=== PATIENT | female | born 1960 | race Caucasian/White ===

== ENCOUNTER → 2022-02-13 13:26 | Outpatient (CLI) | payer MEDICAID, SELFPAY ==
--- NOTE | 2022-02-13 13:36 | CT_ITS ---
FINAL REPORT CLINICAL HISTORY: . 1ppd [id number] smoker FINDINGS: CT CHEST SCREENING CTDI vol (mGy): 2.90 DLP (mGy-cm): 103.42 Axial images were obtained from the lung apex to the mid abdomen by computed tomography. Low-dose protocol was utilized. CHEST: There is no axillary adenopathy. There is no hilar or mediastinal adenopathy. The heart is proper size. There is no pericardial or pleural effusion. Limited images of the upper abdomen are unremarkable. There is mild scarring. There are numerous small, 5 mm or less, bilateral pulmonary nodules. One of the larger nodules, located in the lateral right upper lobe, measures 5 mm, best seen on image 24. IMPRESSION: Pulmonary poles as above. Lung RADS category 2. Recommend 12 month follow-up low-dose chest CT. Reviewed, Interpreted and Dictated by Sadi Claudio III, MD Transcribed by Yesica Jain Authenticated by Sadi Claudio III, MD on 02/13/2022 02:32:43 PM [facility]
== END ==
PROVIDERS: PCP Family Medicine; Visit Provider Family Medicine
DX: Z87.891 Personal history of nicotine dependence (principal); Z12.2 Encounter for screening for malignant neoplasm of respiratory organs
CPT/HCPCS: 71271

== ENCOUNTER 2023-07-24 13:51 | Inpatient (IN) | payer SELFPAY ==
[2023-07-24] VITALS (10 sets, daily range): BP systolic 101–153; BP diastolic 64–127; PULSE 65–94; RESP 18; TEMP 36.7–36.9; O2SAT 91–98; BMI 27.4; BMI 25.8; BMI 22.1
--- NOTE | 2023-07-24 14:07 | CT_ITS ---
PROCEDURE INFORMATION: Exam: CT Abdomen And Pelvis With Contrast Exam date and time: 07/24/2023 3:17 PM Age: 62 years old Clinical indication: Nausea; Additional info: N/v/d TECHNIQUE: Imaging protocol: Computed tomography of the abdomen and pelvis with contrast. Radiation optimization: All CT scans at this facility use at least one of these dose optimization techniques: automated exposure control; mA and/or kV adjustment per patient size (includes targeted exams where dose is matched to clinical indication); or iterative reconstruction. Contrast material: ISOVUE 370; Contrast volume: 75 ml; Contrast route: IV; REPORTING DATA: Count of CT and Cardiac NM exams in prior 12 months: This patient has received 0 known CTs and 0 known cardiac nuclear medicine studies in the 12 months prior to the current study. COMPARISON: CT LUNG SCREENING 02/13/2022 1:49 PM FINDINGS: Liver: Normal. No mass. Gallbladder and bile ducts: Normal. No calcified stones. No ductal dilation. Pancreas: Normal. No ductal dilation. Spleen: Multiple punctate calcified granulomata within the spleen, consistent with prior granulomatous disease. Adrenal glands: Normal. No mass. Kidneys and ureters: Normal. No hydronephrosis. Stomach and bowel: Colonic diverticulosis with subtle inflammatory fat stranding in the descending colon, suspicious for uncomplicated acute diverticulitis. No abscess. Appendix: No evidence of appendicitis. Intraperitoneal space: Unremarkable. No free air. No significant fluid collection. Vasculature: Aortoiliac atherosclerosis. No aneurysm. Lymph nodes: Unremarkable. No enlarged lymph nodes. Urinary bladder: Unremarkable as visualized. Reproductive: Unremarkable as visualized. Bones/joints: Unremarkable. No acute fracture. Soft tissues: Unremarkable. IMPRESSION: Colonic diverticulosis with subtle inflammatory fat stranding in the descending colon, suspicious for uncomplicated acute diverticulitis. No abscess.
--- NOTE | 2023-07-24 14:16 | PC.NURSE ---
pt given warm blanket, at BS
[2023-07-24 14:32] LABS: Chloride 96 mmol/L (98-107); Potassium 3.3 mmoL/L (3.5-5.1); Sodium 133 mmol/L (136-145)
[2023-07-24 14:34] LABS: Blood Urea Nitrogen 9 mg/dl (7-17); Creatinine Clearance Estimated 66 mL/min (50-200); Estimated Glomerular Filt Rate 85 ml/min (>60); GFR (African American) 102 ML/MIN (>60)
[2023-07-24 14:35] LABS: Alanine Aminotransferase 24 U/L (12-78); Albumin Level 4.8 g/dl (3.5-5.0); Albumin/Globulin Ratio 1.5 (1.1-1.8); Alkaline Phosphatase 97 U/L (38-126); Anion Gap 11.3 mEq/L (5-15); Aspartate Amino Transferase 38 U/L (14-36); Bilirubin,Total 0.5 mg/dl (0.2-1.3); Calcium 9.4 mg/dl (8.4-10.2); Carbon Dioxide 29 mmol/L (22.0-30.0); Globulin 3.2 g/dL (1.3-3.2); Glucose 161 mg/dl (74-100); Lipase 45 U/L (23-300)
[2023-07-24 14:36] LABS: Lactic Acid 1.9 mmol/L (0.7-2.1)
[2023-07-24 14:44] LABS: Basophils % 0.3 % (0.1-2.0); Eosinophils % 0.2 % (0.1-12.0); Hematocrit 45.6 % (37.0-47.0); Hemoglobin 16.1 g/dL (12.2-16.2); Lymphocytes # 0.9 K/mm3 (0.7-4.5); Lymphocytes % 11.3 % (10-50); Mean Corpuscular HGB Conc 35.3 g/dL (31.8-35.4); Mean Corpuscular Hemoglobin 33.2 pg (27.0-31.2); Mean Corpuscular Volume 94.1 fl (81-99); Mean Platelet Volume 7.8 fl (7.4-10.4); Monocytes # 0.3 K/mm3 (0.1-1.0); Monocytes % 3.8 % (1.7-9.3); Neutrophils # 6.3 K/mm3 (1.8-7.8); Neutrophils % 84.3 % (37.0-80.0); Platelet Count 349 K/mm3 (142-424); Red Blood Count 4.85 M/mm3 (4.20-5.40); Red Cell Distribution Width 13.7 % (11.5-17.5); White Blood Count 7.5 K/mm3 (4.8-10.8)
--- NOTE | 2023-07-24 15:14 | PC.NURSE ---
Pt gone to RAD via wheelchair
[2023-07-24 15:19] LABS: Appearance,Urine CLEAR (Clear); Bilirubin,Urine Negative (Negative); Blood, Urine Negative (Negative); Color,Urine YELLOW (Yellow); Glucose,Urine (UA) Negative (Negative); Ketones,Urine 1+ (Negative); Leukocyte Esterase,Urine Negative (Negative); Microscopic, Urine URINE MICROSCOPIC (MICROSCOPIC); Nitrate,Urine Negative (Negative); PH,Urine 8.5 (5.0-8.5); Protein,Urine 2+ (Negative); Specific Gravity, Urine 1.015 (1.005-1.030); Urobilinogen,Urine 0.2 EU/dl (0.2)
--- NOTE | 2023-07-24 15:23 | PC.NURSE ---
Pt returned from RAD
[2023-07-24 15:44] LABS: WBC,Urine Occasional #/hpf (0-3)
[2023-07-24 15:45] LABS: Amorphous Sediment,Urine Trace /lpf; Bacteria,Urine Trace /lpf; Coarse Granular Casts,Urine Occasional #/lpf (0); RBC,Urine Occasional #/hpf (0-3)
--- NOTE | 2023-07-24 16:05 | PC.NURSE ---
Pt given sprite for PO challenge
--- NOTE | 2023-07-24 16:35 | PC.NURSE ---
Pt able to drink sprite without problems. notified.
--- NOTE | 2023-07-24 16:55 | HMH.EDGENADL ---
Discharge Plan Disposition Patient Disposition: Home, Self-Care Condition: Good Prescriptions Prescriptions: No Action multivitamin [One Daily Multivitamin] Tablet 1 tab PO DAILY aspirin 81 mg tablet,delayed release (DR/EC) 81 mg PO DAILY diphenhydramine HCl [Benadryl] 25 mg capsule 25 mg PO HS cetirizine 10 mg tablet 10 mg PO DAILY escitalopram oxalate 5 mg tablet 5 mg PO DAILY Qty: 90 3RF lisinopril 5 mg tablet 5 mg PO DAILY Qty: 90 3RF Referrals Follow up/Referrals: Dreek Kaye MD [Primary Care Provider] - See instructions Clinical Impressions Clinical Impression: Diverticulitis, Nausea, vomiting, and diarrhea Instructions Patient Instructions: DI for Diverticulitis Discharge ED Provider: Heladio Riley I General Adult HPI <Heladio Rilye MD - Last Filed: 07/24/23 17:24> General Chief complaint: Nausea/Vomiting/Diarrhea Stated complaint: THROWING UP ALL NIGHT Time Seen by Provider: 07/24/23 13:58 Mode of Arrival: Family Vehicle Source of Information: Patient and Spouse Limitations: No Limitations Description of Symptoms (Recalled from ER Triage Doc. by RN): Pt c/o nausea, vomiting, diarrhea, and abd burning since approx 3am. States she has a hx of diverticulitis. History of Present Illness HPI narrative: Patient is a 62-year-old female, history of cervical cancer, depression, hypertension and diverticulosis presenting to the emergency department with several hour history of nausea, vomiting, diarrhea. History was conducted with the patient as well as the of the patient at bedside. She reports that she woke up this morning at approximately 3 AM with nausea, multiple episodes of vomiting and multiple episodes of watery nonbloody diarrhea. She denies any focal abdominal pain. Also denies fever, cough, congestion, runny nose. Denies chest pain, shortness of breath, difficulty breathing. Patient has attempted to drink water throughout the day but has had recurrent episodes of vomiting. Reports that this is similar to a prior episode of diverticulitis. Related Data Home Medications Medication Instructions Recorded Confirmed multivitamin (One Daily 1 tab PO DAILY 03/06/21 04/08/23 Multivitamin tablet) cetirizine 10 mg tablet 10 mg PO DAILY allergies 02/23/23 04/08/23 diphenhydramine HCl 25 mg capsule 25 mg PO HS allergies 02/23/23 04/08/23 (Benadryl) aspirin 81 mg tablet,delayed 81 mg PO DAILY 03/23/23 04/08/23 release Previous Rx's Medication Instructions Recorded escitalopram oxalate 5 mg tablet 5 mg PO DAILY #90 tabs 02/23/23 lisinopril 5 mg tablet 5 mg PO DAILY #90 tabs 02/23/23 Allergies Allergy/AdvReac Type Severity Reaction Status Date / Time No Known Allergies Allergy Verified 04/08/23 13:35 PFS <Heladio Riley MD - Last Filed: 07/24/23 17:24> [facility] Disclaimer: The information contained in this section may have been updated after the patient was seen, as this information can be updated by other users. Medical History Allergies Anxiety Cervical cancer Depression Hypertension Surgical History History of History of hysterectomy Family History Brother Cancer Father Cancer Grandfather Cancer Mother No problems noted. Grandmother Hypertension Other Coronary artery disease Social History Smoking Status: Never smoker alcohol intake: current substance use type: marijuana current occupational status: retired Travel in the last 8 weeks: None household members: spouse housing: house <Heladio Riley MD - Last Filed: 07/24/23 17:24> ROS Obtained: Yes All systems reviewed & no additional complaints except as documented Physical Exam <Heladio Riley MD
--- NOTE | 2023-07-24 17:12 | PC.NURSE ---
Rounded on pt. Pt resting with eyes closed. Visitor remains at BS.
--- NOTE | 2023-07-24 18:31 | PC.NURSE ---
Dr. Mackay speaking with hospitalist
--- NOTE | 2023-07-24 18:55 | PC.NURSE ---
attempted to call report to med-surg, night warehouse manager nurse Jaycee will call report when she arrives
--- NOTE | 2023-07-24 19:30 | PC.NURSE ---
Report given to TADEO Champion
--- NOTE | 2023-07-24 19:58 | PC.NURSE ---
pt arrived to the floor @19:48
--- NOTE | 2023-07-24 20:15 | EXP.HP ---
History of Present Illness *Admission Date: 07/24/23 *Reason for visit:: N/V/D *History of present illness: Katrina is a 62-year-old female, history of cervical cancer, depression, hypertension and diverticulosis presenting to the emergency department with several hour history of nausea, vomiting, diarrhea. History was conducted with the patient as well as the of the patient at bedside. She reports that she woke up this morning at approximately 3 AM with nausea, multiple episodes of vomiting and multiple episodes of watery nonbloody diarrhea. She denies any focal abdominal pain. Also denies fever, cough, congestion, runny nose. Denies chest pain, shortness of breath, difficulty breathing. Patient has attempted to drink water throughout the day but has had recurrent episodes of vomiting. Reports that this is similar to a prior episode of diverticulitis. Admitted for further treatment. [facility] Disclaimer: The information contained in this section may have been updated after the patient was seen, as this information can be updated by other users. Medical History Allergies Anxiety Cervical cancer Depression Hypertension Surgical History History of History of hysterectomy Family History Brother Cancer Father Cancer Grandfather Cancer Mother No problems noted. Grandmother Hypertension Other Coronary artery disease Social History (Updated 07/24/23 @ 20:31 by Jaycee Sheridan RN) Smoking Status: Current every day smoker alcohol intake: current substance use type: marijuana current occupational status: employed and retired Travel in the last 8 weeks: None household members: spouse housing: house Review of Systems Review of Systems Review of systems:: pertinent systems reviewed and negative unless documented below Meds Home Medications and Allergies Home Medications Medication Instructions Recorded Confirmed Type multivitamin (One Daily 1 tab PO DAILY 03/06/21 07/25/23 History Multivitamin tablet) cetirizine 10 mg tablet 10 mg PO DAILY Allergy Symptoms 02/23/23 07/25/23 History diphenhydramine HCl 25 mg capsule 25 mg PO HS Sleep 02/23/23 07/25/23 History (Benadryl) aspirin 81 mg tablet,delayed 81 mg PO DAILY Heart Health 03/23/23 07/25/23 History release escitalopram oxalate 5 mg tablet 5 mg PO DAILY Mood 07/25/23 07/25/23 History lisinopril 5 mg tablet 5 mg PO DAILY High Blood Pressure 07/25/23 07/25/23 History New Prescriptions to Start Prescriptions: Allergies Allergy/AdvReac Type Severity Reaction Status Date / Time No Known Allergies Allergy Verified 04/08/23 13:35 Exam Data for Last 24 hours Vital signs and Labs for Last 24 Hours: Temp Pulse Resp BP Pulse Ox O2 Del Method 98.4 F 80 18 145/76 H 94 L Room Air 07/24/23 19:32 07/24/23 19:32 07/24/23 19:32 07/24/23 19:32 07/24/23 18:32 07/24/23 18:32 Laboratory Results - last 24 hr 07/24/23 14:06: WBC 7.5, RBC 4.85, Hgb 16.1, Hct 45.6, MCV 94.1, MCH 33.2 H, MCHC 35.3, RDW 13.7, Plt Count 349, MPV 7.8, Neut % (Auto) 84.3 H, Lymph % (Auto) 11.3, [place] % (Auto) 3.8, Eos % (Auto) 0.2, Baso % (Auto) 0.3, Neut # (Auto) 6.3, Lymph # (Auto) 0.9, [place] # (Auto) 0.3, Eos # (Auto) 0.0, Baso # (Auto) 0.0, Sodium 133 L, Potassium 3.3 L, Chloride 96 L, Carbon Dioxide 29, Anion Gap 11.3, BUN 9, Creatinine 0.70, Estimated Creat Clear 66, Estimated GFR 85, Est GFR ( Amer) 102, Glucose 161 H, Lactate 1.9, Calcium 9.4, Total Bilirubin 0.5, AST 38 H, ALT 24, Alkaline Phosphatase 97, Total Protein 8.0, Albumin 4.8, Globulin 3.2, Albumin/Globulin Ratio 1.5, Lipase 45 07/24/23 15:12: Urine Color Yellow, Urine Appearance Clear, Urine pH 8.5, Ur Specific [place] 1.015, Urine Protein 2+, Urine Glucose (UA) Negative, Urine Ketones 1+, Urine Bl
[2023-07-24 20:53] LABS: POC Glucose,Bedside 132 (70-110)
[2023-07-25] VITALS: BP 102/58; PULSE 84; RESP 18; TEMP 37.2; O2SAT 90
--- NOTE | 2023-07-25 03:21 | PC.NURSE ---
Pt is alert and oriented x4, currently on RA, Pt has a history of COPD and sats in the lower 90s, Pt arrived to the unit complaining of nausea and has vomited x2 this shift, pt has received antibiotics and anti nausea meds. Pt seems to be resting well denies pain and offers no complaints at this time.
[2023-07-25 04:00] VITALS: BP 107/59; PULSE 77; RESP 18; TEMP 36.9; O2SAT 84; BMI 22.1
--- NOTE | 2023-07-25 04:03 | PC.NURSE ---
Tech reported O2 of 87% on RA, applied 2L and pt is sating at 94%
[2023-07-25 05:46] LABS: POC Glucose,Bedside 93 (70-110)
[2023-07-25 07:19] LABS: Basophils % 0.7 % (0.1-2.0); Monocytes # 0.6 K/mm3 (0.1-1.0); Neutrophils # 3.2 K/mm3 (1.8-7.8); Red Cell Distribution Width 13.8 % (11.5-17.5)
[2023-07-25 07:21] LABS: Chloride 100 mmol/L (98-107)
[2023-07-25 07:22] LABS: Potassium 3.1 mmoL/L (3.5-5.1); Sodium 133 mmol/L (136-145)
[2023-07-25 07:25] LABS: Anion Gap 7.1 mEq/L (5-15); Blood Urea Nitrogen 9 mg/dl (7-17); Calcium 8.2 mg/dl (8.4-10.2); Carbon Dioxide 29 mmol/L (22.0-30.0); Creatinine Clearance Estimated 57 mL/min (50-200); Estimated Glomerular Filt Rate 72 ml/min (>60); GFR (African American) 88 ML/MIN (>60); Glucose 95 mg/dl (74-100)
[2023-07-25 07:33] LABS: Eosinophils % 0.7 % (0.1-12.0); Lymphocytes # 1.8 K/mm3 (0.7-4.5); Lymphocytes % 31.7 % (10-50); Mean Corpuscular HGB Conc 34.3 g/dL (31.8-35.4); Mean Corpuscular Hemoglobin 32.5 pg (27.0-31.2); Mean Corpuscular Volume 94.6 fl (81-99); Mean Platelet Volume 7.5 fl (7.4-10.4); Monocytes % 10.4 % (1.7-9.3); Neutrophils % 56.5 % (37.0-80.0); Platelet Count 267 K/mm3 (142-424); Red Blood Count 4.33 M/mm3 (4.20-5.40); White Blood Count 5.7 K/mm3 (4.8-10.8)
[2023-07-25 08:00] VITALS: BP 121/71; PULSE 71; RESP 18; TEMP 37.3; O2SAT 96
--- NOTE | 2023-07-25 09:05 | HMH.PHAINT1 ---
Pharmacy Intervention Comments: MEDICATION RECONCILIATION COMPLETED ON PATIENT USING EXTERNAL FILL HISTORY FROM PHARMACY AND LIST FROM PCP OFFICE. -ALEXEY PEREZ, NADIRAD
[2023-07-25 13:28] LABS: POC Glucose,Bedside 96 (70-110)
--- NOTE | 2023-07-25 15:02 | EXP.PN ---
Subjective *Date: 07/25/23 *Time: 15:02 Interval history: Patient was seen and evaluated at the bedside. denies chest pain, shortness of breath, nausea, vomiting, abdominal pain. Patient does not have any complaints at this time. feels better overall Exam Data for Last 24 hours Vital signs and Labs for Last 24 Hours: Temp Pulse Resp BP Pulse Ox O2 Del Method O2 Flow Rate 99.2 F 71 18 121/71 96 Nasal Cannula 2 07/25/23 08:00 07/25/23 08:00 07/25/23 08:00 07/25/23 08:00 07/25/23 08:00 07/25/23 12:31 07/25/23 12:31 Laboratory Results - last 24 hr 07/24/23 15:12: Urine Color Yellow, Urine Appearance Clear, Urine pH 8.5, Ur Specific [place] 1.015, Urine Protein 2+, Urine Glucose (UA) Negative, Urine Ketones 1+, Urine Blood Negative, Urine Nitrate Negative, Urine Bilirubin Negative, Urine Urobilinogen 0.2, Ur Leukocyte Esterase Negative, Urine RBC Occasional, Urine WBC Occasional, Ur Squamous Epith Cells 3-5, Amorphous Sediment Trace, Urine Bacteria Trace, Coarse Granular Casts Occasional 07/24/23 20:44: POC Glucose 132 H 07/25/23 05:26: POC Glucose 93 07/25/23 07:09: WBC 5.7, RBC 4.33, Hgb 14.0 D, Hct 41.0, MCV 94.6, MCH 32.5 H, MCHC 34.3, RDW 13.8, Plt Count 267, MPV 7.5, Neut % (Auto) 56.5, Lymph % (Auto) 31.7, [place] % (Auto) 10.4 H, Eos % (Auto) 0.7, Baso % (Auto) 0.7, Neut # (Auto) 3.2, Lymph # (Auto) 1.8, [place] # (Auto) 0.6, Eos # (Auto) 0.0, Baso # (Auto) 0.0, Sodium 133 L, Potassium 3.1 L, Chloride 100, Carbon Dioxide 29, Anion Gap 7.1, BUN 9, Creatinine 0.80, Estimated Creat Clear 57, Estimated GFR 72, Est GFR ( Amer) 88, Glucose 95 D, Calcium 8.2 L 07/25/23 13:21: POC Glucose 96 I & O for Last 24 hours: Intake & Output 07/22/23 07/23/23 07/24/23 07/25/23 23:59 23:59 23:59 23:59 Intake Total 510 / 510 Output Total 0 / 0 0 / 0 Balance 0 / 60 510 / 510 Weight 62.624 kg 62.624 kg Constitutional Constitutional: no acute distress *Routine HEENT Exam Head: Present normocephalic Eye: Present EOMI and PERRL ENT: Present mucous membranes moist *Routine Neck Exam Neck: Present supple; Absent lymphadenopathy *Routine Respiratory Exam Respiratory: Present CTA bilaterally *Routine Cardiovascular Exam Cardiovascular: Present RRR *Routine Abdominal Exam Abdominal: Present soft and normoactive bowel sounds; Absent tenderness *Routine Extremities Exam Extremities: Absent cyanosis, clubbing or edema *Routine Skin Exam Skin: Present warm; Absent rash *Routine Neurological Exam Neurological: Present alert and oriented X3 Assessment and Plan *Assessment and plan (1) Nausea, vomiting, and diarrhea: Status: Acute Category: Medical Code(s): R11.2 - Nausea with vomiting, unspecified; R19.7 - Diarrhea, unspecified (2) Diverticulitis: Status: Acute Category: Medical Code(s): K57.92 - Diverticulitis of intestine, part unspecified, without perforation or abscess without bleeding (3) Hypertension: Status: Acute Qualifiers: Hypertension type: unspecified Qualified Code(s): I10 - Essential (primary) hypertension Category: Medical Code(s): I10 - Essential (primary) hypertension (4) Pulmonary nodule seen on imaging study: Status: Acute Category: Medical Code(s): R91.1 - Solitary pulmonary nodule (5) Anxiety: Status: Acute Category: Medical Code(s): F41.9 - Anxiety disorder, unspecified Plan 62-year-old female, history of cervical cancer, depression, hypertension and diverticulosis presenting to the emergency department with several hour history of nausea, vomiting, diarrhea. Upon arrival patient underwent for fluid resuscitation, IV antiemetic, and CT of the abdomen. Confirming acute inflammatory changes, consistent with uncomplicated diverticulitis. nausea, vomiting diarrhea - secondary to acute diverticulitis: advance diet as tolerated started on IV levofloxacin and zoxyn. consul
--- NOTE | 2023-07-25 15:13 | EXP.SURG.CON ---
History of Present Illness *Admission Date: 07/24/23 *History of present illness: Katrina is a 62-year-old female, history of cervical cancer, depression, hypertension and diverticulosis presenting to the emergency department with several hour history of nausea, vomiting, diarrhea. History was conducted with the patient as well as the of the patient at bedside. She reports that she woke up this morning at approximately 3 AM with nausea, multiple episodes of vomiting and multiple episodes of watery nonbloody diarrhea. She denies any focal abdominal pain. Also denies fever, cough, congestion, runny nose. Denies chest pain, shortness of breath, difficulty breathing. Patient has attempted to drink water throughout the day but has had recurrent episodes of vomiting. Reports that this is similar to a prior episode of diverticulitis. Admitted for further treatment. 62-year-old female with history of cervical cancer, depression, hypertension, and diverticulosis/diverticulitis in the past. Presents with violent vomiting and some diarrhea. She reports this is similar to previous episode of diverticulitis she has had. Denies all abdominal pain. Her last colonoscopy was in 2019. And normal per patient. A CT scan showed diverticulosis with mild fat stranding that may be consistent with uncomplicated acute diverticulitis. Labs were normal except for hypokalemia with potassium of 3.1. [facility] Disclaimer: The information contained in this section may have been updated after the patient was seen, as this information can be updated by other users. Medical History Allergies Anxiety Cervical cancer Depression Hypertension Surgical History History of History of hysterectomy Family History Brother Cancer Father Cancer Grandfather Cancer Mother No problems noted. Grandmother Hypertension Other Coronary artery disease Social History Smoking Status: Current every day smoker alcohol intake: current substance use type: marijuana current occupational status: employed and retired Travel in the last 8 weeks: None household members: spouse housing: house Review of Systems Review of Systems Review of systems:: pertinent systems reviewed and negative unless documented below *Gastrointestinal Gastrointestinal: Denies abdominal pain, Reports diarrhea and Reports vomiting Meds Home Medications and Allergies Home Medications Medication Instructions Recorded Confirmed Type multivitamin (One Daily 1 tab PO DAILY 03/06/21 07/25/23 History Multivitamin tablet) cetirizine 10 mg tablet 10 mg PO DAILY Allergy Symptoms 02/23/23 07/25/23 History diphenhydramine HCl 25 mg capsule 25 mg PO HS Sleep 02/23/23 07/25/23 History (Benadryl) aspirin 81 mg tablet,delayed 81 mg PO DAILY Heart Health 03/23/23 07/25/23 History release escitalopram oxalate 5 mg tablet 5 mg PO DAILY Mood 07/25/23 07/25/23 History lisinopril 5 mg tablet 5 mg PO DAILY High Blood Pressure 07/25/23 07/25/23 History New Prescriptions to Start Prescriptions: Allergies Allergy/AdvReac Type Severity Reaction Status Date / Time No Known Allergies Allergy Verified 04/08/23 13:35 Exam (Inpt) Vital signs and Labs for Last 24 Hours: Temp Pulse Resp BP Pulse Ox O2 Del Method O2 Flow Rate 99.2 F 71 18 121/71 96 Nasal Cannula 2 07/25/23 08:00 07/25/23 08:00 07/25/23 08:00 07/25/23 08:00 07/25/23 08:00 07/25/23 12:31 07/25/23 12:31 Laboratory Results - last 24 hr 07/24/23 15:12: Urine Color Yellow, Urine Appearance Clear, Urine pH 8.5, Ur Specific [place] 1.015, Urine Protein 2+, Urine Glucose (UA) Negative, Urine Ketones 1+, Urine Blood Negative, Urine Nitrate Negative, Urine [place]
[2023-07-25 16:00] VITALS: BP 121/69; PULSE 70; RESP 18; TEMP 37.1; O2SAT 93
[2023-07-25 17:34] LABS: POC Glucose,Bedside 81 (70-110)
[2023-07-25 19:58] VITALS: BP 130/77; PULSE 73; RESP 18; TEMP 37.1; O2SAT 97
[2023-07-25 20:00] VITALS: O2SAT 97
[2023-07-25 20:20] LABS: POC Glucose,Bedside 84 (70-110)
--- NOTE | 2023-07-26 00:17 | PC.NURSE ---
PATIENT STATES HAS NOT HAD ANY MORE N/V. DENIES ABDOMINAL PAIN. TOLERATING CLEAR LIQ DIET. SPOUSE AT BEDSIDE.
[2023-07-26 04:00] VITALS: BP 119/62; PULSE 68; RESP 18; TEMP 36.8; O2SAT 93; BMI 21.5
[2023-07-26 05:25] LABS: POC Glucose,Bedside 81 (70-110)
[2023-07-26 06:47] LABS: Chloride 105 mmol/L (98-107); Potassium 3.9 mmoL/L (3.5-5.1); Sodium 136 mmol/L (136-145)
[2023-07-26 06:50] LABS: Anion Gap 7.9 mEq/L (5-15); Blood Urea Nitrogen 7 mg/dl (7-17); Calcium 8.1 mg/dl (8.4-10.2); Carbon Dioxide 27 mmol/L (22.0-30.0); Creatinine Clearance Estimated 55 mL/min (50-200); Estimated Glomerular Filt Rate 72 ml/min (>60); GFR (African American) 88 ML/MIN (>60); Glucose 83 mg/dl (74-100)
[2023-07-26 07:08] LABS: Basophils # 0.1 K/mm3 (0-0.2); Basophils % 1.3 % (0.1-2.0); Eosinophils # 0.1 K/mm3 (0.0-0.4); Hemoglobin 13.5 g/dL (12.2-16.2); Lymphocytes # 1.8 K/mm3 (0.7-4.5); Lymphocytes % 40.3 % (10-50); Mean Corpuscular HGB Conc 34.7 g/dL (31.8-35.4); Mean Corpuscular Hemoglobin 33.3 pg (27.0-31.2); Mean Corpuscular Volume 95.8 fl (81-99); Monocytes # 0.4 K/mm3 (0.1-1.0); Monocytes % 9.9 % (1.7-9.3); Neutrophils # 2.1 K/mm3 (1.8-7.8); Neutrophils % 45.5 % (37.0-80.0); Platelet Count 253 K/mm3 (142-424); Red Blood Count 4.07 M/mm3 (4.20-5.40); Red Cell Distribution Width 13.9 % (11.5-17.5); White Blood Count 4.5 K/mm3 (4.8-10.8)
[2023-07-26 07:42] VITALS: BP 125/84; PULSE 71; RESP 17; TEMP 37.2; O2SAT 95
--- NOTE | 2023-07-26 09:31 | EXP.SURG.PN ---
Subjective Patient reports: feels better and bowel movement Exam Data for Last 24 hours Vital signs and Labs for Last 24 Hours: Temp Pulse Resp BP Pulse Ox O2 Del Method O2 Flow Rate 98.9 F 71 17 125/84 95 Room Air 2 07/26/23 07:42 07/26/23 07:42 07/26/23 07:42 07/26/23 07:42 07/26/23 07:42 07/26/23 07:42 07/25/23 15:00 Laboratory Results - last 24 hr 07/25/23 13:21: POC Glucose 96 07/25/23 16:37: POC Glucose 81 07/25/23 20:13: POC Glucose 84 07/26/23 05:15: POC Glucose 81 07/26/23 05:37: WBC 4.5 L, RBC 4.07 L, Hgb 13.5, Hct 39.0, MCV 95.8, MCH 33.3 H, MCHC 34.7, RDW 13.9, Plt Count 253, MPV 8.0, Neut % (Auto) 45.5, Lymph % (Auto) 40.3, [place] % (Auto) 9.9 H, Eos % (Auto) 3.0, Baso % (Auto) 1.3, Neut # (Auto) 2.1, Lymph # (Auto) 1.8, [place] # (Auto) 0.4, Eos # (Auto) 0.1, Baso # (Auto) 0.1, Sodium 136, Potassium 3.9 D, Chloride 105, Carbon Dioxide 27, Anion Gap 7.9, BUN 7, Creatinine 0.80, Estimated Creat Clear 55, Estimated GFR 72, Est GFR ( Amer) 88, Glucose 83, Calcium 8.1 L I & O for Last 24 hours: Intake & Output 07/23/23 07/24/23 07/25/23 07/26/23 11:59 11:59 11:59 11:59 Intake Total 503 / 5038 Output Total 0 / 0 Balance 7 / 5037 Weight 138 lb 0.996 oz 134 lb 3 oz Constitutional Constitutional: no acute distress *Routine Respiratory Exam Respiratory: Absent respiratory distress *Routine Cardiovascular Exam Cardiovascular: Absent tachycardia *Routine Abdominal Exam Abdominal: Present soft Progress Note: A&P Assessment and plan (1) Nausea, vomiting, and diarrhea: Status: Acute Assessment and plan: Currently she feels much better and wishes to be discharged home. Advance diet Continue management as per primary service As noted per Dr. Lilly's consultation - consider repeat colonoscopy in the near future (2) Diverticulitis: Status: Acute Assessment and plan: Possible mild/early diverticulitis as per CT scan Complete course of antibiotics
--- NOTE | 2023-07-26 14:26 | EXP.DC.SUM ---
General Admission date:: 07/24/23 Discharge date: 07/26/23 HPI HPI HPI: Katrina is a 62-year-old female, history of cervical cancer, depression, hypertension and diverticulosis presenting to the emergency department with several hour history of nausea, vomiting, diarrhea. History was conducted with the patient as well as the of the patient at bedside. She reports that she woke up this morning at approximately 3 AM with nausea, multiple episodes of vomiting and multiple episodes of watery nonbloody diarrhea. She denies any focal abdominal pain. Also denies fever, cough, congestion, runny nose. Denies chest pain, shortness of breath, difficulty breathing. Patient has attempted to drink water throughout the day but has had recurrent episodes of vomiting. Reports that this is similar to a prior episode of diverticulitis. Admitted for further treatment. 62-year-old female with history of cervical cancer, depression, hypertension, and diverticulosis/diverticulitis in the past. Presents with violent vomiting and some diarrhea. She reports this is similar to previous episode of diverticulitis she has had. Denies all abdominal pain. Her last colonoscopy was in 2019. And normal per patient. A CT scan showed diverticulosis with mild fat stranding that may be consistent with uncomplicated acute diverticulitis. Labs were normal except for hypokalemia with potassium of 3.1. Hospital Course Hospital Course Hospital Course: Patient was seen and evaluated at the bedside on the day of discharge. Patient is stable for discharge. Patient wishes to be discharged. All patient questions were answered and patient was given time to ask questions. Patient was discharged in stable condition. Acute diverticulitis - improved, DC on PO Flagyl and Levofloaxacin PNA presumed gram negative PNA - PO doxycline patient was instructed to f/u with PCP as OP Exam Data for Last 24 hours Vital signs and Labs for Last 24 Hours: Temp Pulse Resp BP Pulse Ox O2 Del Method O2 Flow Rate 98.9 F 71 17 125/84 95 Room Air 2 07/26/23 07:42 07/26/23 07:42 07/26/23 07:42 07/26/23 07:42 07/26/23 07:42 07/26/23 11:00 07/25/23 15:00 Laboratory Results - last 24 hr 07/25/23 16:37: POC Glucose 81 07/25/23 20:13: POC Glucose 84 07/26/23 05:15: POC Glucose 81 07/26/23 05:37: WBC 4.5 L, RBC 4.07 L, Hgb 13.5, Hct 39.0, MCV 95.8, MCH 33.3 H, MCHC 34.7, RDW 13.9, Plt Count 253, MPV 8.0, Neut % (Auto) 45.5, Lymph % (Auto) 40.3, [place] % (Auto) 9.9 H, Eos % (Auto) 3.0, Baso % (Auto) 1.3, Neut # (Auto) 2.1, Lymph # (Auto) 1.8, [place] # (Auto) 0.4, Eos # (Auto) 0.1, Baso # (Auto) 0.1, Sodium 136, Potassium 3.9 D, Chloride 105, Carbon Dioxide 27, Anion Gap 7.9, BUN 7, Creatinine 0.80, Estimated Creat Clear 55, Estimated GFR 72, Est GFR ( Amer) 88, Glucose 83, Calcium 8.1 L I & O for Last 24 hours: Intake & Output 07/23/23 07/24/23 07/25/23 07/26/23 23:59 23:59 23:59 23:59 Intake Total 4012 / 4012 1086 / 1086 Output Total 0 / 0 Balance 4011 / 4011 1086 / 1086 Weight 62.624 kg 62.624 kg 60.866 kg Constitutional Constitutional: no acute distress *Routine HEENT Exam Head: Present normocephalic Eye: Present EOMI and PERRL ENT: Present mucous membranes moist *Routine Neck Exam Neck: Present supple; Absent lymphadenopathy *Routine Respiratory Exam Respiratory: Present CTA bilaterally *Routine Cardiovascular Exam Cardiovascular: Present RRR *Routine Abdominal Exam Abdominal: Present soft and normoactive bowel sounds; Absent tenderness *Routine Extremities Exam Extremities: Absent cyanosis, clubbing or edema *Routine Skin Exam Skin: Present warm; Absent rash *Routine Neurological Exam Neurological: Present alert and oriented X3 Results Data Completed and Pending Labs on day of discharge: Labs from last 24 hours 07/26/23 07/26/23 07/25/23 05:37 05:15 20:13 WBC 4.5 L RBC 4.07 L Hgb 13.5 Hct 39.0
--- NOTE | 2023-07-28 15:20 | CARE MANAGER ---
Unable to reach patient to discuss recent discharge. CM attempted call x 2, no VM option available.
== END 2023-07-26 12:00 | disposition home or self-care (01) | DRG 392 ==
LOC: ER 18:42 → 2ND 18:45
PROVIDERS: Emergency Medicine; Admitting Provider Internal Medicine; Emergency Provider Emergency Medicine; PCP Family Medicine; Visit Provider Internal Medicine
DX: K57.92 Diverticulitis of intestine, part unspecified, without perforation or abscess without bleeding (principal); Z85.41 Personal history of malignant neoplasm of cervix uteri; F32.A Depression, unspecified; I10 Essential (primary) hypertension; E87.6 Hypokalemia; E87.8 Other disorders of electrolyte and fluid balance, not elsewhere classified; F41.9 Anxiety disorder, unspecified
CPT/HCPCS: 36415; 74177; 80048; 80053; 81001; 82962; 83605; 83690; 85025; 99285; J1956; J2405; J2543; Q9967

== ENCOUNTER → 2023-08-04 16:58 | Outpatient (CLI) | payer SELFPAY ==
[2023-08-04 16:57] LABS: Basophils # 0.1 K/mm3 (0-0.2); Basophils % 1.5 % (0.1-2.0); Eosinophils # 0.2 K/mm3 (0.0-0.4); Eosinophils % 3.9 % (0.1-12.0); Hematocrit 45.7 % (37.0-47.0); Hemoglobin 15.4 g/dL (12.2-16.2); Lymphocytes # 1.9 K/mm3 (0.7-4.5); Lymphocytes % 39.5 % (10-50); Mean Corpuscular HGB Conc 33.8 g/dL (31.8-35.4); Mean Corpuscular Hemoglobin 33.1 pg (27.0-31.2); Mean Corpuscular Volume 97.9 fl (81-99); Mean Platelet Volume 8.9 fl (7.4-10.4); Monocytes # 0.4 K/mm3 (0.1-1.0); Monocytes % 7.5 % (1.7-9.3); Neutrophils # 2.3 K/mm3 (1.8-7.8); Neutrophils % 47.5 % (37.0-80.0); Platelet Count 369 K/mm3 (142-424); Red Blood Count 4.67 M/mm3 (4.20-5.40); Red Cell Distribution Width 13.9 % (11.5-17.5); White Blood Count 4.8 K/mm3 (4.8-10.8)
[2023-08-04 17:30] LABS: Alanine Aminotransferase 16 U/L (12-78); Albumin Level 3.8 g/dl (3.5-5.0); Albumin/Globulin Ratio 1.4 (1.1-1.8); Alkaline Phosphatase 70 U/L (38-126); Anion Gap 10.4 mEq/L (5-15); Aspartate Amino Transferase 27 U/L (14-36); Bilirubin,Total 0.2 mg/dl (0.2-1.3); Blood Urea Nitrogen 4 mg/dl (7-17); Carbon Dioxide 25 mmol/L (22.0-30.0); Chloride 104 mmol/L (98-107); Chol/HDL Ratio 2.9 (1-3.5); Cholesterol 179 mg/dl (140-200); Estimated Glomerular Filt Rate 72 ml/min (>60); GFR (African American) 88 ML/MIN (>60); Globulin 2.7 g/dL (1.3-3.2); Glucose 95 mg/dl (74-100); HDL Cholesterol 62 mg/dl (40-60); Potassium 4.4 mmoL/L (3.5-5.1); Sodium 135 mmol/L (136-145); Total Protein,Serum 6.5 g/dl (6.3-8.2); Triglycerides 93 mg/dl (30-150); VLDL Cholesterol 19 mg/dL (0-40)
[2023-08-04 17:41] LABS: Direct LDL Cholesterol 87.84 mg/dL (100-129)
[2023-08-04 18:00] LABS: Hemoglobin A1C 5.4 % (4.0-6.0)
[2023-08-04 18:03] LABS: Thyroid Stimulating Hormone 1.13 uIU/mL (0.465-4.68)
== END ==
LOC: LAB.DROPOF 16:58
PROVIDERS: PCP Nurse Practitioner Family; Visit Provider Nurse Practitioner Family
DX: I10 Essential (primary) hypertension (principal); R11.0 Nausea; Z79.899 Other long term (current) drug therapy
CPT/HCPCS: 80053; 80061; 83036; 84443; 85025

== ENCOUNTER 2024-11-08 18:15 | Emergency (ER) | payer MEDICARE, SELFPAY ==
[2024-11-08] VITALS (7 sets, daily range): BP systolic 111–141; BP diastolic 46–89; PULSE 60–76; RESP 16–18; TEMP 36.6; O2SAT 96–100; BMI 24.0
--- NOTE | 2024-11-08 18:21 | HMH.EDGENADL ---
Discharge Plan Disposition Patient Disposition: Home, Self-Care Condition: Fair Prescriptions Prescriptions: New ondansetron 4 mg tablet,disintegrating 4 mg PO QID PRN (Reason: nausea and vomiting) Qty: 10 0RF amoxicillin-pot clavulanate 875-125 mg tablet 1 tab PO BID Qty: 20 0RF promethazine 25 mg tablet 25 mg PO Q6H PRN (Reason: sedation) Qty: 10 0RF No Action multivitamin [One Daily Multivitamin] Tablet 1 tab PO DAILY cetirizine 10 mg tablet 10 mg PO DAILY Qty: 90 2RF escitalopram oxalate 5 mg tablet See Rx Instructions .ROUTE .COMPLEX Qty: 90 2RF Dose Instruction: TAKE 1 TABLET BY MOUTH ONCE DAILY Rx Instructions: TAKE 1 TABLET BY MOUTH ONCE DAILY diphenhydramine HCl [Benadryl] 25 mg capsule 25 mg PO HS Qty: 90 0RF lisinopril 5 mg tablet See Rx Instructions .ROUTE .COMPLEX Qty: 90 0RF Dose Instruction: TAKE 1 TABLET BY MOUTH ONCE DAILY Rx Instructions: TAKE 1 TABLET BY MOUTH ONCE DAILY aspirin 81 mg tablet,delayed release (DR/EC) 81 mg PO DAILY Qty: 90 0RF ondansetron 4 mg tablet,disintegrating 4 - 8 mg PO BID PRN (Reason: nausea and vomiting) Qty: 20 2RF Referrals Follow up/Referrals: Virginia Mondragon APRN [Primary Care Provider] - See instructions Sadi Pedro MD [Staff Physician] - See instructions Activity Restrictions/Add. Instructions Additional Instructions/Restrictions: Please take your antibiotic till it is gone. If you have any increasing pain inability to tolerate oral intake inability to pass gas or stool increasing fever or pain return to the ER. Clinical Impressions Clinical Impression: Diverticulitis Instructions Patient Instructions: DI for Diverticulitis Print Language Print Language: Turkish Discharge ED Provider: Ludwin Olmos General Adult HPI <BRUCE Goode - Last Filed: 11/08/24 20:38> General Chief complaint: Nausea/Vomiting/Diarrhea Stated complaint: vomiting, diarrhea Time Seen by Provider: 11/08/24 18:21 History of Present Illness HPI narrative: Patient presents for evaluation of nausea vomiting diarrhea. Patient states that since 7 there is morning she has had nausea vomiting diarrhea. She has been intolerant of any oral intake. She denies any fever chills hemoptysis hematochezia melena hematemesis hematuria. She denies any cough chest pain sore throat headache. Related Data Home Medications ?Medication ?Instructions ?Recorded ?Confirmed multivitamin (One Daily 1 tab PO DAILY 03/06/21 10/18/24 Multivitamin tablet) Previous Rx's ?Medication ?Instructions ?Recorded aspirin 81 mg tablet,delayed 81 mg PO DAILY [facility] #90 08/30/24 release tabs cetirizine 10 mg tablet 10 mg PO DAILY Allergy Symptoms 08/30/24 #90 tabs diphenhydramine HCl 25 mg capsule 25 mg PO HS Sleep #90 caps 08/30/24 (Benadryl) escitalopram oxalate 5 mg tablet See Rx Instructions .Route 08/30/24 .COMPLEX #90 tabs lisinopril 5 mg tablet See Rx Instructions .Route 08/30/24 .COMPLEX #90 tabs ondansetron 4 mg disintegrating 4 - 8 mg (1 - 2 x 4 mg) PO BID PRN 10/19/24 tablet nausea and vomiting #20 tabs amoxicillin 875 mg-potassium 1 tab PO BID #20 tabs 11/08/24 clavulanate 125 mg tablet ondansetron 4 mg disintegrating 4 mg PO QID PRN nausea and 11/08/24 tablet vomiting #10 tabs promethazine 25 mg tablet 25 mg PO Q6H PRN sedation #10 tabs 11/08/24 Allergies Allergy/AdvReac Type Severity Reaction Status Date / Time No Known Allergies Allergy Verified 10/18/24 12:54 [facility] <BRUCE Goode - Last Filed: 11/08/24 20:38> [facility] Disclaimer: The information contained in this section may have been updated after the patient was seen, as this information can be updated by other users. Medical History Cervical cancer Allergies Anxiety Depression Hypertension Surgical History History of hysterectomy History of Family History Brother Cancer Father Cancer Grandfather Cancer Mother No problems noted. Grandmother Hypertension Other Coronary artery disease Social History Smoking Status: Current every day smoker alcohol intake: current alcohol intake frequency: holidays/special occasions only substance use type: marijuana current occupational status: employed and retired Travel in the last 8 weeks: None household members: spouse housing: house Have you lived/traveled outside [place] in past 30 days?: No Contact w/someone who lives/traveled outside US past 30 days?: No Exposure to someone with infectious disease in past 14 days?: No Do you have a fever (greater than 100.4 F or 38 C)?: No Have you tested positive for COVID-19: No Exposed to someone with COVID-19 in past 14 days?: No Do you have a sore throat?: No Do you have a cough?: No Do you have any weakness?: No Do you have any diarrhea?: Yes Are you experiencing any unusual bleeding?: No Do you have any muscle aches/pain?: No Do you have any abdominal pain?: No Are you experiencing loss of taste or smell?: No Other Medical History Have you received the Flu Vaccine for this season: No Have you received the Pneumonia Vaccine: No <BRUCE Goode - Last Filed: 11/08/24 20:38> ROS Obtained: Yes Systems reviewed as appropriate & no additional complaints except as documented Physical Exam <BRUCE Goode - Last Filed: 11/08/24 20:38> General General appearance: alert and in no apparent distress Respiratory Respiratory exam: Present normal lung sounds bilaterally Cardiovascular Cardiovascular exam: Present regular rate Neurological Exam Neurological exam: Present alert and oriented X3 Medical Decision Making <BRUCE Goode - Last Filed: 11/08/24 20:38> Medical Records Medical records reviewed: Yes I reviewed the patient's medical records. Screening: Per USPSTF and CDC recommendations, given the prevalence of disease in our region, it is our hospital?s policy to screen for HIV and viral Hepatitis for all patients aged 18 and over and those with ongoing risk factors. Shane Inquiry Pt receiving controlled substance: No Vital Signs: 11/08/24 18:16 11/08/24 19:00 11/08/24 19:30 Temperature 97.8 F Temperature Source Oral Pulse Rate 60 76 Pulse Rate [Radial] 76 Respiratory Rate 18 Blood Pressure 134/65 141/63 H Blood Pressure [Left Arm] 111/89 Blood Pressure Mean [Left Arm] 96 Blood Pressure Source [Left Arm] Automatic Cuff Blood Pressure Position [Left Arm] Sitting 02 Sat by Pulse Oximetry 99 96 100 Oxygen Delivery Method Room Air Room Air Room Air 11/08/24 20:00 11/08/24 20:30 Temperature Temperature Source Pulse Rate 68 60 Pulse Rate [Radial] Respiratory Rate Blood Pressure 119/70 137/63 Blood Pressure [Left Arm] Blood Pressure Mean [Left Arm] Blood Pressure Source [Left Arm] Blood Pressure Position [Left Arm] 02 Sat by Pulse Oximetry 100 99 Oxygen Delivery Method Room Air Lab Data Lab results reviewed: Yes I reviewed the patient's lab results. Lab Results 11/08/24 18:24: SARS-CoV-2 (PCR) Not detected, Influenza A Untype (PCR) Not detected, Influenza Type B (PCR) Not detected 11/08/24 18:27: WBC 9.2, RBC 4.30, Hgb 11.8 L, Hct 36.0 L, MCV 83.7, MCH 27.4, MCHC 32.8, RDW 14.7, Plt Count 501 H, MPV 8.9, Neut % (Auto) 90.4 H, Lymph % (Auto) 6.4 L, [place] % (Auto) 2.4, Eos % (Auto) 0.0 L, Baso % (Auto) 0.4, Neut # (Auto) 8.3 H, Lymph # (Auto) 0.6 L, [place] # (Auto) 0.2, Eos # (Auto) 0.0, Baso # (Auto) 0.0, Total Counted 100, Neutrophils % (Manual) 89 H, Lymphocytes % (Manual) 9 L, Monocytes % (Manual) 2, Platelet Estimate Slight increase, RBC Morphology Normal, Sodium 133 L, Potassium 4.1, Chloride 98, Carbon Dioxide 26, Anion Gap 13.1, BUN 7, Creatinine 0.70, Estimated Creat Clear 56, Estimated GFR 84, Est GFR ( Amer) 102, Glucose 214 H, Calcium 9.5, Magnesium 1.8, Total Bilirubin 0.4, AST 35, ALT 28, Alkaline Phosphatase 91, Total Protein 7.8, Albumin 5.1 H, Globulin 2.7, Albumin/Globulin Ratio 1.9 H, Lipase 30, HCV Ab KASSI w/Rflx PCR Qn Negative, HIV Ag/Ab Combo Qual Negative 11/08/24 18:37: VBG pH 7.44 H, VBG pCO2 37.2, VBG pO2 29.1, VBG HCO3 24.7, VBG Total CO2 25.8, VBG O2 Saturation 57.9, VBG Base Excess 0.5, VBG Lactic Acid 2.8 H 11/08/24 18:27 11/08/24 18:27 Orders (Tests/Meds): ED MEDICATIONS Generic Name Dose Route Start Last Admin Trade Name Freq PRN Reason Stop Dose Admin Sodium Chloride 10 ml 11/08/24 19:28 11/08/24 19:29 Sodium Chloride 0.9% 10ml Syr (Rad Only) IV 12/08/24 19:27 10 ml NEEDED PRN Administration Maintain IV Site Discontinued Medications Generic Name Dose Route Start Last Admin Trade Name Freq PRN Reason Stop Dose Admin Hydromorphone HCl 0.5 mg 11/08/24 20:36 11/08/24 20:41 Hydromorphone 2mg/Ml Syringe IV 11/08/24 20:37 0.5 mg ONCE ONE Administration Lactated Ringer's 1,640 mls @ 820 mls/hr 11/08/24 18:30 11/08/24 18:37 Lactated Ringer's 1000 Ml Bag 30 ml/kg infuse over 2 hr (1640 ml) 11/08/24 20:29 820 mls/hr IV Administration .Q2H ONE Piperacillin Sod/Tazobactam 50 mls @ 100 mls/hr 11/08/24 20:07 11/08/24 20:14 Sod 3.375 gm/ Sodium Chloride IV 11/08/24 20:36 100 mls/hr ONCE ONE Administration Iopamidol 75 ml 11/08/24 19:28 11/08/24 19:29 Iopamidol-370 (76%);100ml Bottle IV 11/08/24 19:29 75 ml ONCE ONE Administration Ondansetron HCl 4 mg 11/08/24 18:30 11/08/24 18:37 Ondansetron 4mg/2ml Vial IV 11/08/24 18:31 4 mg ONCE ONE Administration Promethazine HCl 12.5 mg 11/08/24 20:36 11/08/24 20:42 Promethazine Hcl 25mg/Ml 1ml Vial IV 11/08/24 20:37 12.5 mg ONCE ONE Administration Sodium Chloride 25 ml 11/08/24 20:36 11/08/24 20:41 Sodium Chloride 0.9% 25ml Bag IV 11/08/24 20:37 25 ml ONCE ONE Administration ORDERS Category Date Time Status CT abdomen pelvis w con Stat Cat Scan 11/08/24 18:30 Completed CBC w/Auto Diff [Complete Blood Count Auto Diff] Stat Lab 11/08/24 18:27 Completed CMP [Comprehensive Metabolic Panel] Stat Lab 11/08/24 18:27 Results Diarrhea 23 Panel, PCR Stat Lab 11/08/24 18:31 Ordered HIV Combo Stat Lab 11/08/24 18:27 Completed Hepatitis C Ab Qual. W/ RFX Stat Lab 11/08/24 18:27 Completed Lipase Stat Lab 11/08/24 18:27 Results Magnesium Stat Lab 11/08/24 18:27 Results Procalcitonin Stat Lab 11/08/24 18:27 Results Rapid PCR Covid and Flu A/B Stat Lab 11/08/24 18:24 Completed UA [Urinalysis and Microscopic] Stat Lab 11/08/24 18:31 Ordered Blood Culture Stat Micro 11/08/24 18:44 Received VBG [Venous Blood Gas] Stat RT 11/08/24 18:37 Completed Medical Decision Narrative: In summary patient is a 64-year-old female who presents to the emergency department for evaluation of nausea vomiting diarrhea. Patient is initially normotensive at 111/89 with a heart rate of 76 with normal sinus rhythm on the bedside monitor breathing 18 times a minute satting at 99% on room air upon arrival, afebrile at 97.8. Zickel exam is remarkable for clear breath sounds heard to the bases, normal heart sounds, diffuse mild abdominal tenderness to palpation without rebound or guarding or rigidity. Bowel sounds hyperactive.. Differential diagnosis includes gastroenteritis versus electrolyte abnormality versus diverticulitis versus other viral or bacterial infection etc. Initial workup will be conducted with hematologic labs blood cultures twelve-lead EKG CT scan abdomen pelvis VBG urinalysis. Initial interventions include sepsis bolus IV Zofran. Initial workup reviewed by me and her hematologic labs are reassuring with white count of 9.2 with a hemoglobin hematocrit 11.8 and 36.0 and absolute neutrophil count of 8.3 VBG shows a pH of 7.44 VBG lactic acid 2.8 and the remainder of her hematologic labs are nonactionable. Her respiratory swabs are negative. My informal interpretation of her CT scan abdomen pelvis shows thickened colonic wall and diverticulosis of the descending and sigmoid colon that has some stranding surrounding it suggestive of diverticulitis. I gave the patient a dose of IV Zosyn here prior to p.o. challenge. Upon reevaluation patient is tolerant of oral intake thus patient is appropriate for discharge with a prescription for Augmentin Zofran for first-line antiemetics and Phenergan for backup and strict return precautions. She I have also referred her to general surgery for evaluation of possible resection of the diseased section of her sigmoid colon <Ludwin Olmos MD - Last Filed: 11/08/24 21:00> Vital Signs: 11/08/24 18:16 11/08/24 19:00 11/08/24 19:30 Temperature 97.8 F Temperature Source Oral Pulse Rate 60 76 Pulse Rate [Radial] 76 Respiratory Rate 18 Blood Pressure 134/65 141/63 H Blood Pressure [Left Arm] 111/89 Blood Pressure Mean [Left Arm] 96 Blood Pressure Source [Left Arm] Automatic Cuff Blood Pressure Position [Left Arm] Sitting 02 Sat by Pulse Oximetry 99 96 100 Oxygen Delivery Method Room Air Room Air Room Air 11/08/24 20:00 11/08/24 20:30 Temperature Temperature Source Pulse Rate 68 60 Pulse Rate [Radial] Respiratory Rate Blood Pressure 119/70 137/63 Blood Pressure [Left Arm] Blood Pressure Mean [Left Arm] Blood Pressure Source [Left Arm] Blood Pressure Position [Left Arm] 02 Sat by Pulse Oximetry 100 99 Oxygen Delivery Method Room Air Lab Data Lab Results 11/08/24 18:24: SARS-CoV-2 (PCR) Not detected, Influenza A Untype (PCR) Not detected, Influenza Type B (PCR) Not detected 11/08/24 18:27: WBC 9.2, RBC 4.30, Hgb 11.8 L, Hct 36.0 L, MCV 83.7, MCH 27.4, MCHC 32.8, RDW 14.7, Plt Count 501 H, MPV 8.9, Neut % (Auto) 90.4 H, Lymph % (Auto) 6.4 L, [place] % (Auto) 2.4, Eos % (Auto) 0.0 L, Baso % (Auto) 0.4, Neut # (Auto) 8.3 H, Lymph # (Auto) 0.6 L, [place] # (Auto) 0.2, Eos # (Auto) 0.0, Baso # (Auto) 0.0, Total Counted 100, Neutrophils % (Manual) 89 H, Lymphocytes % (Manual) 9 L, Monocytes % (Manual) 2, Platelet Estimate Slight increase, RBC Morphology Normal, Sodium 133 L, Potassium 4.1, Chloride 98, Carbon Dioxide 26, Anion Gap 13.1, BUN 7, Creatinine 0.70, Estimated Creat Clear 56, Estimated GFR 84, Est GFR ( Amer) 102, Glucose 214 H, Calcium 9.5, Magnesium 1.8, Total Bilirubin 0.4, AST 35, ALT 28, Alkaline Phosphatase 91, Total Protein 7.8, Albumin 5.1 H, Globulin 2.7, Albumin/Globulin Ratio 1.9 H, Lipase 30, HCV Ab KASSI w/Rflx PCR Qn Negative, HIV Ag/Ab Combo Qual Negative 11/08/24 18:37: VBG pH 7.44 H, VBG pCO2 37.2, VBG pO2 29.1, VBG HCO3 24.7, VBG Total CO2 25.8, VBG O2 Saturation 57.9, VBG Base Excess 0.5, VBG Lactic Acid 2.8 H Orders (Tests/Meds): ED MEDICATIONS Generic Name Dose Route Start Last Admin Trade Name Freq PRN Reason Stop Dose Admin Sodium Chloride 10 ml 11/08/24 19:28 11/08/24 19:29 Sodium Chloride 0.9% 10ml Syr (Rad Only) IV 12/08/24 19:27 10 ml NEEDED PRN Administration Maintain IV Site Discontinued Medications Generic Name Dose Route Start Last Admin Trade Name Freq PRN Reason Stop Dose Admin Hydromorphone HCl 0.5 mg 11/08/24 20:36 11/08/24 20:41 Hydromorphone 2mg/Ml Syringe IV 11/08/24 20:37 0.5 mg ONCE ONE Administration Lactated Ringer's 1,640 mls @ 820 mls/hr 11/08/24 18:30 11/08/24 18:37 Lactated Ringer's 1000 Ml Bag 30 ml/kg infuse over 2 hr (1640 ml) 11/08/24 20:29 820 mls/hr IV Administration .Q2H ONE Piperacillin Sod/Tazobactam 50 mls @ 100 mls/hr 11/08/24 20:07 11/08/24 20:14 Sod 3.375 gm/ Sodium Chloride IV 11/08/24 20:36 100 mls/hr ONCE ONE Administration Iopamidol 75 ml 11/08/24 19:28 11/08/24 19:29 Iopamidol-370 (76%);100ml Bottle IV 11/08/24 19:29 75 ml ONCE ONE Administration Ondansetron HCl 4 mg 11/08/24 18:30 11/08/24 18:37 Ondansetron 4mg/2ml Vial IV 11/08/24 18:31 4 mg ONCE ONE Administration Promethazine HCl 12.5 mg 11/08/24 20:36 11/08/24 20:42 Promethazine Hcl 25mg/Ml 1ml Vial IV 11/08/24 20:37 12.5 mg ONCE ONE Administration Sodium Chloride 25 ml 11/08/24 20:36 11/08/24 20:41 Sodium Chloride 0.9% 25ml Bag IV 11/08/24 20:37 25 ml ONCE ONE Administration ORDERS Category Date Time Status CT abdomen pelvis w con Stat Cat Scan 11/08/24 18:30 Completed CBC w/Auto Diff [Complete Blood Count Auto Diff] Stat Lab 11/08/24 18:27 Completed CMP [Comprehensive Metabolic Panel] Stat Lab 11/08/24 18:27 Results Diarrhea 23 Panel, PCR Stat Lab 11/08/24 18:31 Ordered HIV Combo Stat Lab 11/08/24 18:27 Completed Hepatitis C Ab Qual. W/ RFX Stat Lab 11/08/24 18:27 Completed Lipase Stat Lab 11/08/24 18:27 Results Magnesium Stat Lab 11/08/24 18:27 Results Procalcitonin Stat Lab 11/08/24 18:27 Results Rapid PCR Covid and Flu A/B Stat Lab 11/08/24 18:24 Completed UA [Urinalysis and Microscopic] Stat Lab 11/08/24 18:31 Ordered Blood Culture Stat Micro 11/08/24 18:44 Received VBG [Venous Blood Gas] Stat RT 11/08/24 18:37 Completed Medical Decision Narrative: In summary patient is a 64-year-old female who presents to the emergency department for evaluation of nausea vomiting diarrhea. Patient is initially normotensive at 111/89 with a heart rate of 76 with normal sinus rhythm on the bedside monitor breathing 18 times a minute satting at 99% on room air upon arrival, afebrile at 97.8. Zickel exam is remarkable for clear breath sounds heard to the bases, normal heart sounds, diffuse mild abdominal tenderness to palpation without rebound or guarding or rigidity. Bowel sounds hyperactive.. Differential diagnosis includes gastroenteritis versus electrolyte abnormality versus diverticulitis versus other viral or bacterial infection etc. Initial workup will be conducted with hematologic labs blood cultures twelve-lead EKG CT scan abdomen pelvis VBG urinalysis. Initial interventions include sepsis bolus IV Zofran. Initial workup reviewed by me and her hematologic labs are reassuring with white count of 9.2 with a hemoglobin hematocrit 11.8 and 36.0 and absolute neutrophil count of 8.3 VBG shows a pH of 7.44 VBG lactic acid 2.8 and the remainder of her hematologic labs are nonactionable. Her respiratory swabs are negative. My informal interpretation of her CT scan abdomen pelvis shows thickened colonic wall and diverticulosis of the descending and sigmoid colon that has some stranding surrounding it suggestive of diverticulitis. I gave the patient a dose of IV Zosyn here prior to p.o. challenge. Upon reevaluation patient is tolerant of oral intake thus patient is appropriate for discharge with a prescription for Augmentin Zofran for first-line antiemetics and Phenergan for backup and strict return precautions. She I have also referred her to general surgery for evaluation of possible resection of the diseased section of her sigmoid colon I was consulted by the KADEN, and we discussed the complexity of the problems being addressed. I approved the treatment and management plan for this patient's care in the Emergency Department, thus performing a substantive portion of the medical decision making. I independently interpreted patient's labs and imaging, nonactionable hematologic workup other than reactive thrombocytosis. Patient does have what appears to be pericolonic fat stranding with extensive diverticulosis concerning for diverticulitis. No evidence of perforation or abscess. Because patient at baseline without signs or symptoms of clinical decompensation, deemed appropriate for discharge. Results were relayed to patient who voiced understanding and were agreeable to outpatient management and follow up. Ludwin Olmos MD Critical Care <BRUCE Goode - Last Filed: 11/08/24 20:38> Critical Care Time Critical Care Time: No
--- NOTE | 2024-11-08 18:29 | PC.NURSE ---
notified resp that i sent up a green top for a VBG
--- NOTE | 2024-11-08 18:30 | CT_ITS ---
PROCEDURE INFORMATION: Exam: CT Abdomen And Pelvis With Contrast Exam date and time: 11/08/2024 7:24 PM Age: 64 years old Clinical indication: Nausea and vomiting; Additional info: Nausea vomiting diarrhea TECHNIQUE: Imaging protocol: Computed tomography of the abdomen and pelvis with contrast. Radiation optimization: All CT scans at this facility use at least one of these dose optimization techniques: automated exposure control; mA and/or kV adjustment per patient size (includes targeted exams where dose is matched to clinical indication); or iterative reconstruction. Contrast material: ISOVUE; Contrast volume: 75 ml; Contrast route: IV; COMPARISON: CT ABDOMEN PELVIS W CON 07/24/2023 3:17 PM FINDINGS: Lungs: Stable 4 mm nodule medial right lower lobe dating back to chest CT of 02/13/2022. No follow-up advised. Liver: Subcentimeter low-density lesions in the superior liver on image 14 and more inferiorly in the left lobe of liver on image 26 of series 3 too small to characterize but are stable compatible with cysts. Liver otherwise unremarkable. Gallbladder and biliary ducts: Normal. No calcified stones. No ductal dilation. Pancreas: Normal. No ductal dilation. Spleen: Normal. No splenomegaly. Adrenal glands: Normal. No mass. Kidneys and ureters: Normal. No hydronephrosis. Stomach and bowel: Extensive diverticula throughout the colon. Possible abnormal wall thickening of the colon extending from the hepatic flexure through the distal sigmoid. GI tract structures otherwise unremarkable with no other evident wall thickening allowing for incomplete distention. Appendix: No evidence of appendicitis. Intraperitoneal space: Unremarkable. No free air. No significant fluid collection. Vasculature: Unremarkable. No abdominal aortic aneurysm. Lymph nodes: Unremarkable. No enlarged lymph nodes. Urinary bladder: Unremarkable as visualized. Reproductive: Hysterectomy. Bones/joints: Unremarkable. No acute fracture. Soft tissues: Unremarkable. IMPRESSION: Diverticulosis. Thickened appearance of the colon from the hepatic flexure through the distal sigmoid which may be artifactual from nondistention but developing colitis not totally excluded.
--- NOTE | 2024-11-08 18:33 | PC.NURSE ---
I rounded on the pt and took her a pillow and blanket. no needs voiced at this time. call clark in reach.
[2024-11-08 18:37] LABS: Coronavirus 19, PCR Not Detected (NotDetected); Influenza A, PCR Not Detected (NotDetected); Influenza B, PCR Not Detected (NotDetected)
[2024-11-08] MEDS: LACTATED RINGERS 1000ML 1,640 ML 820 ML IV (18:37)
[2024-11-08] MEDS: ONDANSETRON 4MG/2ML VIAL 4 MG IV (18:37)
[2024-11-08 18:38] LABS: Basophils % 0.4 % (0.1-2.0); Hemoglobin 11.8 g/dL (12.2-16.2); Lymphocytes # 0.6 K/mm3 (0.7-4.5); Lymphocytes % 6.4 % (10-50); Mean Corpuscular HGB Conc 32.8 g/dL (31.8-35.4); Mean Corpuscular Hemoglobin 27.4 pg (27.0-31.2); Mean Corpuscular Volume 83.7 fl (81-99); Mean Platelet Volume 8.9 fl (7.4-10.4); Monocytes # 0.2 K/mm3 (0.1-1.0); Monocytes % 2.4 % (1.7-9.3); Neutrophils # 8.3 K/mm3 (1.8-7.8); Neutrophils % 90.4 % (37.0-80.0); Platelet Count 501 K/mm3 (142-424); Red Cell Distribution Width 14.7 % (11.5-17.5); White Blood Count 9.2 K/mm3 (4.8-10.8)
[2024-11-08 18:40] LABS: Albumin Level 5.1 g/dl (3.5-5.0); Chloride 98 mmol/L (98-107); Potassium 4.1 mmoL/L (3.5-5.1); Sodium 133 mmol/L (136-145)
[2024-11-08 18:41] LABS: VBG Base Excess 0.5 mmol/L (-2.4-2.3); VBG HCO3 24.7 mmol/L (23-30); VBG Oxygen Saturation 57.9 % (50-70); VBG PCO2 37.2 mmol/L (35-51); VBG PH 7.44 mmol/L (7.31-7.41); VBG PO2 29.1 mmol/L (28-40); VBG Total CO2 25.8 mmol/L (23-27)
[2024-11-08 18:43] LABS: Lactate Venous 2.8 mmol/L (0.4-2.0)
[2024-11-08 18:43] LABS: Alanine Aminotransferase 28 U/L (12-78); Albumin/Globulin Ratio 1.9 (1.1-1.8); Alkaline Phosphatase 91 U/L (38-126); Anion Gap 13.1 mEq/L (5-15); Aspartate Amino Transferase 35 U/L (14-36); Bilirubin,Total 0.4 mg/dl (0.2-1.3); Blood Urea Nitrogen 7 mg/dl (7-17); Calcium 9.5 mg/dl (8.4-10.2); Carbon Dioxide 26 mmol/L (22.0-30.0); Creatinine Clearance Estimated 56 mL/min (50-200); Estimated Glomerular Filt Rate 84 ml/min (>60); GFR (African American) 102 ML/MIN (>60); Globulin 2.7 g/dL (1.3-3.2); Glucose 214 mg/dl (74-100); Lipase 30 U/L (23-300); Magnesium 1.8 mg/dl (1.6-2.3); Total Protein,Serum 7.8 g/dl (6.3-8.2)
[2024-11-08 18:57] LABS: MANUAL DIFFERENTIAL MANUAL DIFFERENTIAL (MANUAL DIFF)
[2024-11-08] MEDS: SODIUM CHLORIDE 0.9% 10ML SYR (RAD ONLY) 10 ML IV (19:29)
[2024-11-08] MEDS: IOPAMIDOL-370 (76%);100ML BOTTLE 75 ML IV (19:29)
[2024-11-08 19:52] LABS: HIV Combo NEGATIVE (Negative)
[2024-11-08 19:58] LABS: Hepatitis C Ab Qual. W/ RFX NEGATIVE (Negative)
[2024-11-08 20:00] LABS: Lymphocytes % 9 % (10-50); Monocytes % 2 % (2-9); Neutrophils % 89 % (42-76); Platelet Estimate Slight Increase; RBC Morphology Normal; Total Cells Counted 100
[2024-11-08] MEDS: PIPERCILLIN/TAZO 3.375 GM in 0.9 % SODIUM CHLORIDE 50 ML IV (20:14)
--- NOTE | 2024-11-08 20:39 | PC.NURSE ---
Rounded on pt, pt lying in bed at this time. pt does not have any questions nor concerns for us at this time. connected the call light to the bed for pt.
[2024-11-08] MEDS: HYDROMORPHONE 2MG/ML SYRINGE 0.5 MG IV (20:41)
[2024-11-08] MEDS: SODIUM CHLORIDE 0.9% 25ML BAG 25 ML IV (20:41)
[2024-11-08] MEDS: PROMETHAZINE HCL 25MG/ML 1ML VIAL 12.5 MG IV (20:42)
--- NOTE | 2024-11-08 21:08 | PC.NURSE ---
Patient has fluids going in, then will D/C
[2024-11-08 22:43] LABS: Reflex Lactic Add Lactic Reflex
== END 2024-11-08 22:01 | disposition home or self-care (01) ==
PROVIDERS: Physician Assistant; Emergency Provider Emergency Medicine; PCP Nurse Practitioner Family
DX: K57.92 Diverticulitis of intestine, part unspecified, without perforation or abscess without bleeding (principal); R11.2 Nausea with vomiting, unspecified; R19.7 Diarrhea, unspecified
CPT/HCPCS: 74177; 80053; 82803; 83690; 83735; 84145; 85007; 85025; 85027; 86803; 87040; 87389; 87636; 96365; 96374; 96375; 99285; J1171; J2405; J2543; J2550; J7120; Q9967

== ENCOUNTER 2025-03-12 09:54 | Day surgery (SDC) | payer MEDICARE, SELFPAY ==
[2025-03-12 10:28] VITALS: BMI 24.0
[2025-03-12] MEDS: LACTATED RINGERS 1000ML 1,000 ML 50 ML IV (10:30)
[2025-03-12 10:37] VITALS: BP 126/75; PULSE 69; RESP 18; TEMP 36.4; O2SAT 92
--- NOTE | 2025-03-12 11:50 | EXP.HP ---
History of Present Illness *Admission Date: 03/12/25 *Reason for visit:: Diverticulitis *History of present illness: Mrs. Crump is a 64-year-old female who is here for diagnostic colonoscopy secondary to recurrent diverticulitis and some underlying constipation. The examination is deemed medically necessary for diagnostic colonoscopy. The patient has been seen, interviewed and examined prior to the procedure by both myself and the anesthesia provider. [facility] Disclaimer: The information contained in this section may have been updated after the patient was seen, as this information can be updated by other users. Medical History Cervical cancer Allergies Anxiety Depression Hypertension Surgical History History of hysterectomy History of Family History Brother Cancer Father Cancer Grandfather Cancer Mother No problems noted. Grandmother Hypertension Other Coronary artery disease Social History Smoking Status: Current every day smoker alcohol intake: current alcohol intake frequency: holidays/special occasions only substance use type: marijuana current occupational status: employed and retired Travel in the last 8 weeks?: None household members: spouse housing: house Have you lived/traveled outside US in past 30 days?: No Contact w/someone who lives/traveled outside US past 30 days?: No Exposure to someone with infectious disease in past 14 days?: No Do you have a fever (greater than 100.4 F or 38 C)?: No Have you tested positive for COVID-19?: No Exposed to someone with COVID-19 in past 14 days?: No Do you have a sore throat?: No Do you have a cough?: No Do you have any weakness?: No Do you have any diarrhea?: No Are you experiencing any unusual bleeding?: No Do you have any muscle aches/pain?: No Do you have any abdominal pain?: No Are you experiencing loss of taste or smell?: No Other Medical History Have you received the Flu Vaccine for this season: No Have you received the Pneumonia Vaccine: No Review of Systems Review of Systems Review of systems (narrative): Negative *Cardiovascular Comments: Negative *Gastrointestinal Comments: Negative *Genitourinary Comments: Negative *Musculoskeletal Comments: Negative *Neurologic Comments: Negative Meds Home Medications and Allergies Home Medications ?Medication ?Instructions ?Recorded ?Confirmed ?Type multivitamin (One Daily 1 tab PO DAILY 03/06/21 03/12/25 History Multivitamin tablet) aspirin 81 mg tablet,delayed 81 mg PO DAILY Heart Health #90 08/30/24 03/12/25 Rx release tabs cetirizine 10 mg tablet 10 mg PO DAILY Allergy Symptoms 08/30/24 03/12/25 Rx #90 tabs diphenhydramine HCl 25 mg capsule 25 mg PO HS Sleep #90 caps 08/30/24 03/12/25 Rx (Benadryl) escitalopram oxalate 5 mg tablet See Rx Instructions .Route 08/30/24 03/12/25 Rx .COMPLEX #90 tabs lisinopril 5 mg tablet See Rx Instructions .Route 12/28/24 03/12/25 Rx .COMPLEX #90 tabs polyethylene glycol 3350 17 gram 17 g PO DAILY 03/12/25 03/12/25 History oral powder packet (Miralax) psyllium husk 3.4 gram/5.4 gram 1 tbsp PO DAILY 03/12/25 03/12/25 History oral powder (Metamucil) New Prescriptions to Start Prescriptions: Allergies Allergy/AdvReac Type Severity Reaction Status Date / Time No Known Allergies Allergy Verified 03/12/25 10:30 Exam Data for Last 24 hours Vital signs and Labs for Last 24 Hours: Temp Pulse Resp BP Pulse Ox O2 Del Method 97.6 F 69 18 126/75 92 L Room Air 03/12/25 10:37 03/12/25 10:37 03/12/25 10:37 03/12/25 10:37 03/12/25 10:37 03/12/25 10:37 I & O for Last 24 hours: Intake & Output 03/09/25 03/10/25 03/11/25 03/12/25 23:59 23:59 23:59 23:59 Weight 140 lb *Routine HEENT Exam Head: Present normocephalic Eye: Present EOMI and PERRL ENT: Present mucous membranes moist *Routine Neck Exam Neck: Present supple *Routine Respiratory Exam Respiratory: Present CTA bilaterally *Routine Cardiovascular Exam Cardiovascular: Present RRR *Routine Abdominal Exam Abdominal: Present soft and normoactive bowel sounds; Absent tenderness *Routine Rectal Exam Rectal:: deferred *Routine Genitalia Exam Genitalia:: deferred *Routine Extremities Exam Extremities: Absent cyanosis, clubbing or edema *Routine Skin Exam Skin: Present warm; Absent rash *Routine Neurological Exam Neurological: Present alert and oriented X3 Assessment and Plan *Assessment and plan (1) Chronic constipation: Status: Acute Category: Medical Code(s): K59.09 - Other constipation (2) Sigmoid diverticulitis: Status: Acute Category: Medical Code(s): K57.32 - Diverticulitis of large intestine without perforation or abscess without bleeding Plan A/P: 1. Sigmoid diverticulitis and chronic constipation is the preprocedural diagnosis. The patient will be anesthetized/sedated using MAC sedation. The patient has been seen and examined. Cardiac and lung assessment prior to the examination is stable. Proceed with planned diagnostic colonoscopy.
--- NOTE | 2025-03-12 11:52 | HMH.PROCNOTE ---
[facility] Procedure Note Date: 03/12/25 Time: 12:18 Procedure Note:: Colonoscopy Procedure Report: Colonoscopy with cold snare polypectomy Endoscopist: Nils Giles II, MD Referring physician: Derek Kaye MD Date of Procedure: March 12, 2025 Equipment: Olympus 190 variable stiffness pediatric colonoscope Sedation: MAC sedation Indication: Mrs. Crump is a 64-year-old female who is here for diagnostic colonoscopy. The patient went to the emergency department in November 2024 with acute sigmoid diverticulitis. She has had a couple of prior episodes of diverticulitis over the years. She does have some underlying constipation. She reports no rectal bleeding, weight loss, change in bowel habits or family history of colon cancer. Her abdominal pain has completely resolved after the course of Augmentin antibiotic. She did have a colonoscopy in 2018 (Sanjeev Wright MD) and had a couple of benign colon polyps removed. Because of the bowel prep, he had recommended a 2-year screening interval for repeat colonoscopy. Procedure: Prior to the procedure, a history and physical exam was performed, and patient's medications and allergies were reviewed. The risks, benefits and alternatives of the sedation and procedure were discussed with the patient. All questions were answered and informed consent was obtained. The patient was brought to the procedure room. Patient identification and proposed procedure were verified by the physician and the nurse. The patient was placed in a left lateral decubitus position and the scope was passed under direct vision. Throughout the procedure, the patient's blood pressure, pulse, and oxygen saturations were monitored continuously. The colonoscopy was accomplished without difficulty. The patient tolerated the procedure well. Findings: On digital rectal examination there was normal rectal tone. There were no external hemorrhoids. The colonoscope was introduced through the anal canal to the rectum and advanced to the cecum. The ileocecal valve and appendiceal orifice were identified. The scope was advanced a short distance into the ileum which appeared grossly normal. The scope was then withdrawn into the colon. There was a single 7 to 8 mm flat cecal polyp that was removed via cold snare polypectomy. The remaining cecum, ascending and transverse colon and mucosa were grossly normal. There were extensively scattered diverticuli throughout the descending and sigmoid colon (LEFT colon). There were some sigmoid pericolonic adhesions. The rectum itself was normal. Upon retroflexion within the rectum there were grade 1-2 internal hemorrhoids. The preparation was excellent throughout with [place] Preparation Score of 9. The cecal time was 13 minutes. Impression: 1. Cecal polyp (7 to 8 mm) 2. Extensive left-sided diverticulosis 3. Grade 1-2 internal hemorrhoids Plan: I will follow-up the polyp histology and recommend repeat surveillance colonoscopy again in 5 to 7 years based upon the pathology. I would encourage a fiber bowel regimen (combined MiraLAX plus Metamucil) on a long-term daily maintenance basis.
[2025-03-12 12:23] VITALS: BP 88/55; PULSE 86; RESP 20; TEMP 36.2; O2SAT 96
--- NOTE | 2025-03-12 12:28 | EXP.ANES.CKL ---
[facility] Disclaimer: The information contained in this section may have been updated after the patient was seen, as this information can be updated by other users. Medical History Cervical cancer Allergies Anxiety Depression Hypertension Surgical History History of hysterectomy History of Family History Brother Cancer Father Cancer Grandfather Cancer Mother No problems noted. Grandmother Hypertension Other Coronary artery disease Social History Smoking Status: Current every day smoker alcohol intake: current alcohol intake frequency: holidays/special occasions only substance use type: marijuana current occupational status: employed and retired Travel in the last 8 weeks?: None household members: spouse housing: house Have you lived/traveled outside US in past 30 days?: No Contact w/someone who lives/traveled outside [place] past 30 days?: No Exposure to someone with infectious disease in past 14 days?: No Do you have a fever (greater than 100.4 F or 38 C)?: No Have you tested positive for COVID-19?: No Exposed to someone with COVID-19 in past 14 days?: No Do you have a sore throat?: No Do you have a cough?: No Do you have any weakness?: No Do you have any diarrhea?: No Are you experiencing any unusual bleeding?: No Do you have any muscle aches/pain?: No Do you have any abdominal pain?: No Are you experiencing loss of taste or smell?: No [facility] Anesthesia Checklist Patient Identification Patient Identification: Verbal (Name & ) Structural Data Admitted From: Home Planned Operative Procedure/s: colon Consent for Planned Operative Procedure(s) Verified: Yes NPO Status Verified Time NPO: 00:00 Airway Assessment Mallampati Score:: Class II C-Spine Mobility Assessed: Yes TMJ Mobility Assessed: Yes Dentition: Good Dentition Neurological Assessment Level of Consciousness: Awake, Alert and Appropriate Anesthesia Plan Anesthesia Risk discussed: Yes Anesthesia Plan: Verified ASA Class: II Anesthesia Type: MAC
[2025-03-12 12:33] VITALS: BP 108/68; PULSE 88; RESP 20; O2SAT 98
[2025-03-12 12:43] VITALS: BP 118/76; PULSE 86; RESP 20; O2SAT 98
[2025-03-12 12:53] VITALS: BP 111/79; PULSE 87; RESP 20; TEMP 36.2; O2SAT 98
== END 2025-03-12 13:05 | disposition home or self-care (01) ==
PROVIDERS: PCP Family Medicine; Visit Provider Internal Medicine Gastroenterology
PROC: 0DJD8ZZ Inspection of Lower Intestinal Tract, Via Natural or Artificial Opening Endoscopic (ICD-10-PCS; CPT 45378; principal; 2025-03-12 11:30)
DX: D12.0 Benign neoplasm of cecum (principal); K57.90 Diverticulosis of intestine, part unspecified, without perforation or abscess without bleeding; K64.0 First degree hemorrhoids; K64.1 Second degree hemorrhoids; I10 Essential (primary) hypertension; F17.210 Nicotine dependence, cigarettes, uncomplicated; Z79.899 Other long term (current) drug therapy; Z79.82 Long term (current) use of aspirin; Z86.0100 Personal history of colon polyps, unspecified
CPT/HCPCS: 45385; 88305; J7120

== ENCOUNTER 2025-06-14 13:20 | Outpatient (CLI) | payer MEDICARE, SELFPAY ==
--- NOTE | 2025-06-14 14:00 | MM_ITS ---
PROCEDURE INFORMATION: Exam: MG Bilateral Screening 3D Mammography Exam date and time: 06/14/2025 1:47 PM Age: 64 years old Clinical indication: Screening examination TECHNIQUE: Imaging protocol: Bilateral Screening tomosynthesis and 2D mammography including computer-aided detection (CAD) when performed. COMPARISON: 1. MG SCREEN MAMMO W CAD BILAT 03/09/2023 2:01 PM 2. MG Screening-Bilateral Mammography 08/05/2018 3:14 PM FINDINGS: MAMMOGRAPHY: Breast composition: There are scattered areas of fibroglandular density. Mass: None. Architectural distortion: None. Calcifications: No suspicious calcifications. Asymmetric density: None. Skin thickening: None. Axillary adenopathy: None. IMPRESSION: No mammographic evidence of malignancy. Annual screening is recommended unless otherwise clinically indicated. ASSESSMENT: BI-RADS Category 1: Negative.
== END 2025-06-14 23:59 | disposition home or self-care (01) ==
LOC: RAD 13:20
PROVIDERS: PCP Family Medicine; Visit Provider Family Medicine
DX: Z12.31 Encounter for screening mammogram for malignant neoplasm of breast (principal); R92.323 Mammographic fibroglandular density, bilateral breasts
CPT/HCPCS: 77063; 77067